=== PATIENT | female | born 1950 | race Caucasian/White ===

== ENCOUNTER 2019-03-14 01:22 | Outpatient (CLI) | payer MEDICARE, BC, SELFPAY ==
--- NOTE | 2019-03-14 10:00 | SATEXT_ITS ---
Assessment: Ms. Duffy presents for nutritional counseling for weight management as a support to her on-line Weight Watcher's program. Ms. Duffy stated that she feels like she is doing ok on the program. She has lost 6 pounds in two weeks. However, she states that she is just counting points and does not feel her diet is always well rounded. She also states she gets very hungry on her current plan and craves sweets frequently. She is walking 2 miles per day. Ms. Duffy is 176.6 lbs and 59. Nutritional Diagnosis: Class 2 obesity related to a history of excess energy intake and physical inactivity. Intervention: Acknowledged Ms. Duffy's excellent work with staying within the program and losing weight. Also acknowledged her excellent habit of walking 2 miles each day. Encouraged her to keep that up. With regard to her food choices, I pointed out that in the morning and until lunch she eats only carbohydrate foods. She eats the instant packaged oatmeal and fruits. Explained that she sets herself up to crave sweets in this way as she has little to zero protein to hold her blood sugars steady until she has lunch. We came up with several breakfast and snack suggestions that contain protein and that will also fit into her eating plan. Monitoring and Evaluation: 1. Will monitor her progress on adding protein to her diet when she returns in March. 2. Will evaluate nutrition care plan at that time and adjust accordingly. Thank you for the referral. Total time spent face to face with patient was 42 minutes.
== END 2019-03-14 01:42 ==
PROVIDERS: PCP Nurse Practitioner Family; Visit Provider Dietitian, Registered
DX: E66.9 Obesity, unspecified (principal); Z71.3 Dietary counseling and surveillance
CPT/HCPCS: 97802

== ENCOUNTER 2020-12-02 15:04 | Outpatient (REF) | payer MEDICARE, BC, SELFPAY ==
[2020-12-02 14:11] LABS: ALT 37 U/L (14-59); AST 17 U/L (15-37); Albumin 3.4 g/dL (3.4-5.0); Alkaline Phosphatase 96 U/L (46-116); Anion Gap 8.8 mmol/L (3-11); BUN 9 mg/dL (7-18); Bilirubin, Total 0.4 mg/dL (0.2-1.0); CO2 29.2 mmol/L (21.0-32.0); CREATININE 0.95 mg/dL (0.55-1.02); Calcium 9.3 mg/dL (8.5-10.1); Calculated LDL 57 mg/dL (<100); Chloride 102 mmol/L (98-107); Cholesterol 131 mg/dL (<200); Estimated GFR 58.33 (mL/min/1.73m2); Glucose 93 mg/dL (74-106); HDL Cholesterol 31 mg/dL (40-60); Potassium 4.6 mmol/L (3.5-5.1); Sodium 140 mmol/L (136-145); TSH (W/Ref FT4) 3.79 uIU/mL (0.36-3.74); Total Protein 7.1 g/dL (6.4-8.2); Triglyceride 218 mg/dL (<150)
[2020-12-02 14:41] LABS: FREE T4 0.97 ng/dL (0.76-1.46)
[2020-12-02 15:11] LABS: Hemoglobin A1C 5.8 % (<5.7)
[2020-12-03 10:29] LABS: Hepatitis C Ab w Rflx HCV PCR Negative (Negative)
[2020-12-03 10:48] LABS: HIV-1/2 Ag & Ab Screen Negative (Negative)
[2020-12-04 04:57] LABS: Vitamin D 25 Total 25.8 ng/ml (30-100)
== END 2020-12-02 15:24 ==
LOC: NCHCN 15:04
PROVIDERS: PCP Nurse Practitioner Family; Visit Provider Nurse Practitioner Family
DX: E78.5 Hyperlipidemia, unspecified (principal); E55.9 Vitamin D deficiency, unspecified; R73.09 Other abnormal glucose; Z11.3 Encounter for screening for infections with a predominantly sexual mode of transmission; Z11.4 Encounter for screening for human immunodeficiency virus [HIV]; Z11.59 Encounter for screening for other viral diseases
CPT/HCPCS: 80053; 80061; 82306; 86803; 87389; 83036; 84439; 84443

== ENCOUNTER 2021-01-08 22:19 | Outpatient (REF) | payer MEDICARE, BC, SELFPAY ==
[2021-01-08 21:30] LABS: TSH (W/Ref FT4) 2.82 uIU/mL (0.36-3.74)
== END 2021-01-08 22:20 | disposition home or self-care (01) ==
LOC: NCHCN 22:19
PROVIDERS: PCP Nurse Practitioner Family; Visit Provider Nurse Practitioner Family
DX: R94.6 Abnormal results of thyroid function studies (principal)
CPT/HCPCS: 84443

== ENCOUNTER 2021-02-26 09:25 | Outpatient (REF) | payer MEDICARE, BC, SELFPAY ==
[2021-02-26 15:29] LABS: Vitamin D 25 Total 29.5 ng/mL (30-100)
== END 2021-02-26 09:26 | disposition home or self-care (01) ==
LOC: NCHCN 09:25
PROVIDERS: PCP Nurse Practitioner Family; Visit Provider Nurse Practitioner Family
DX: E55.9 Vitamin D deficiency, unspecified (principal); M81.0 Age-related osteoporosis without current pathological fracture
CPT/HCPCS: 82306

== ENCOUNTER 2021-06-30 14:37 | Outpatient (REF) | payer MEDICARE, BC, SELFPAY ==
[2021-06-30 14:21] LABS: Hemoglobin A1C 5.8 % (<5.7)
[2021-07-02 01:29] LABS: Vitamin D 25 Total 45.6 ng/mL (30-100)
== END 2021-06-30 14:38 | disposition home or self-care (01) ==
LOC: NCHCN 14:37
PROVIDERS: PCP Nurse Practitioner Family; Visit Provider Nurse Practitioner Family
DX: R73.03 Prediabetes (principal); E55.9 Vitamin D deficiency, unspecified; M81.0 Age-related osteoporosis without current pathological fracture
CPT/HCPCS: 82306; 83036

== ENCOUNTER 2022-05-10 14:04 | Outpatient (REF) | payer MEDICARE, BC, SELFPAY ==
[2022-05-10 21:40] LABS: ALT 40 U/L (14-59); AST 25 U/L (15-37); Albumin 4.1 g/dL (3.4-5.0); Alkaline Phosphatase 90 U/L (46-116); Anion Gap 10.4 mmol/L (3-11); BUN 22 mg/dL (7-18); Bilirubin, Total 0.4 mg/dL (0.2-1.0); CO2 27.6 mmol/L (21.0-32.0); Calcium 9.7 mg/dL (8.5-10.1); Chloride 101 mmol/L (98-107); Estimated GFR 54.81 (mL/min/1.73m2); Glucose 86 mg/dL (74-106); Potassium 4.2 mmol/L (3.5-5.1); Sodium 139 mmol/L (136-145); Total Protein 7.4 g/dL (6.4-8.2)
[2022-05-10 23:27] LABS: Calculated LDL 80 mg/dL (<100); Cholesterol 157 mg/dL (<200); HDL Cholesterol 49 mg/dL (40-60); Triglyceride 144 mg/dL (<150)
== END 2022-05-10 14:05 | disposition home or self-care (01) ==
LOC: NCHCN 14:04
PROVIDERS: PCP Nurse Practitioner Family; Visit Provider Nurse Practitioner Family
DX: E78.5 Hyperlipidemia, unspecified (principal); Z00.00 Encounter for general adult medical examination without abnormal findings
CPT/HCPCS: 80053; 80061

== ENCOUNTER 2023-04-25 15:07 | Outpatient (REF) | payer MEDICARE, BC, SELFPAY ==
[2023-04-25 16:02] LABS: Anion Gap 7.8 mmol/L (3-11); BUN 14 mg/dL (7-18); CO2 31.2 mmol/L (21.0-32.0); CREATININE 0.9 mg/dL (0.55-1.02); Calcium 9.8 mg/dL (8.5-10.1); Calculated LDL 77 mg/dL (<100); Chloride 105 mmol/L (98-107); Cholesterol 177 mg/dL (<200); Estimated GFR 68.35 (mL/min/1.73m2); Glucose 68 mg/dL (74-106); HDL Cholesterol 42 mg/dL (40-60); Potassium 3.8 mmol/L (3.5-5.1); Sodium 144 mmol/L (136-145); Triglyceride 293 mg/dL (<150)
[2023-04-25 16:06] LABS: Hemoglobin A1C 5.5 % (<5.7)
== END 2023-04-25 15:08 | disposition home or self-care (01) ==
LOC: NCHCN 15:07
PROVIDERS: PCP Nurse Practitioner Family; Visit Provider Nurse Practitioner Family
DX: R73.03 Prediabetes (principal); E66.9 Obesity, unspecified
CPT/HCPCS: 80048; 80061; 83036

== ENCOUNTER 2024-12-10 12:38 | Outpatient (REF) | payer MEDICARE, BC, SELFPAY ==
[2024-12-10 16:03] LABS: ALT 25 U/L (14-59); AST 23 U/L (15-37); Albumin 4.1 g/dL (3.4-5.0); Alkaline Phosphatase 115 U/L (46-116); Anion Gap 5.7 mmol/L (3-11); BUN 13 mg/dL (7-18); Bilirubin, Total 0.67 mg/dL (0.2-1.0); CO2 31.3 mmol/L (21.0-32.0); CREATININE 1.1 mg/dL (0.55-1.02); Calcium 10.3 mg/dL (8.5-10.1); Calculated LDL 96 mg/dL (<100); Chloride 107 mmol/L (98-107); Cholesterol 193 mg/dL (<200); Estimated GFR 53.06 (mL/min/1.73m2); Glucose 102 mg/dL (74-106); HDL Cholesterol 52 mg/dL (40-60); Potassium 5.2 mmol/L (3.5-5.1); Sodium 144 mmol/L (136-145); Total Protein 8.2 g/dL (6.4-8.2); Triglyceride 225 mg/dL (<150); Vitamin D 25 Total 60.5 ng/mL (30-100)
== END 2024-12-10 12:39 | disposition home or self-care (01) ==
LOC: NCHCN 12:38
PROVIDERS: PCP Nurse Practitioner Family; Visit Provider Nurse Practitioner Family
DX: E78.5 Hyperlipidemia, unspecified (principal); E55.9 Vitamin D deficiency, unspecified
CPT/HCPCS: 80053; 80061; 82306

== ENCOUNTER 2024-12-17 17:32 | Outpatient (REF) | payer MEDICARE, BC, SELFPAY ==
[2024-12-17 16:33] LABS: Anion Gap 4.1 mmol/L (3-11); BUN 13 mg/dL (7-18); CO2 32.9 mmol/L (21.0-32.0); Chloride 106 mmol/L (98-107); Estimated GFR 59.49 (mL/min/1.73m2); Glucose 101 mg/dL (74-106); Potassium 4.4 mmol/L (3.5-5.1); Sodium 143 mmol/L (136-145)
[2024-12-17 22:01] LABS: Parathyroid Hormone,Intact 47.4 pg/mL (19.0-88.0)
== END 2024-12-17 17:33 | disposition home or self-care (01) ==
LOC: NCHCN 17:32
PROVIDERS: PCP Nurse Practitioner Family; Visit Provider Nurse Practitioner Family
DX: E83.52 Hypercalcemia (principal)
CPT/HCPCS: 80048; 83970